=== PATIENT | female | born 1970 | race Caucasian/White ===

== ENCOUNTER → 2019-08-24 13:21 | Outpatient (BNVA) | payer MEDICAID, SELFPAY | PROVIDERS: PCP Family Medicine; Visit Provider Family Medicine | DX: I12.9 Hypertensive chronic kidney disease with stage 1 through stage 4 chronic kidney disease, or unspecified chronic kidney disease (principal); E11.22 Type 2 diabetes mellitus with diabetic chronic kidney disease; N18.4 Chronic kidney disease, stage 4 (severe); Z79.4 Long term (current) use of insulin; G47.00 Insomnia, unspecified; M54.5 Low back pain | CPT/HCPCS: 36415; 80061; 80069; 82306; 82728; 83036; 83540; 83550; 85025 ==

== ENCOUNTER → 2019-09-24 10:42 | Outpatient (BNVA) | payer MEDICAID, SELFPAY | PROVIDERS: PCP Family Medicine; Visit Provider Family Medicine | DX: E11.22 Type 2 diabetes mellitus with diabetic chronic kidney disease (principal); N18.4 Chronic kidney disease, stage 4 (severe); I10 Essential (primary) hypertension; F41.1 Generalized anxiety disorder; G47.00 Insomnia, unspecified; E55.9 Vitamin D deficiency, unspecified; M54.5 Low back pain; M54.6 Pain in thoracic spine; M47.897 Other spondylosis, lumbosacral region; M16.0 Bilateral primary osteoarthritis of hip; Z79.4 Long term (current) use of insulin | CPT/HCPCS: 72072; 72100; 73523 ==

== ENCOUNTER 2019-11-18 09:58 | Outpatient (CLI) | payer MEDICAID, SELFPAY ==
--- NOTE | 2019-11-18 10:11 | MR_ITS ---
WS: [id number] MRI LUMBAR SPINE NONCONTRAST TECHNIQUE: Sagittal T1, T2 and STIR imaging. Axial T1 and T2 imaging. CLINICAL INFORMATION: Chronic pain, xray showed degeneration, surg referral pend. COMPARISON: None. FINDINGS: Mild lumbar curve. No acute compression. Mild disc bulging L5-S1 with disc desiccation. L1-L2: Normal. L2-L3: No significant disc bulging. Mild facet arthropathy. Spinal canal and foramen are patent. L3-L4: No significant disc bulging. Mild facet arthropathy. Spinal canal and foramen are patent. L4-L5: Tiny central disc protrusion with slight effacement of ventral thecal sac. Slight narrowing of subarticular recess bilaterally. Mild to moderate facet arthropathy. Mild left and no significant ri ght foraminal narrowing. L5-S1: Mild disc bulging with osteophytic ridging. Slight effacement of ventral thecal sac. Moderate right and mild left foraminal narrowing. Tiny shallow central protrusion. Mild to moderate facet arth ropathy. Visualized pelvic bony structures: Normal. Paravertebral soft tissues: Normal. MR/MR lumbar spine wo con* [id number] IMPRESSION: 1. Mild lumbar curve. No acute compression. Disc desiccation worse L5-S1. 2. Shallow central protrusion L4-5 with slight effacement of the ventral theca l sac. Mild left foraminal narrowing at this level. 3. Right eccentric disc osteophyte complex L5-S1 with moderate right foraminal narrowing and contact of the exiting right L5 nerve root. 4. Tiny shallow central protrusion L5-S1 with slight contact of the traversing S1 nerve roots without significant impingement.
== END 2019-11-18 09:59 | disposition home or self-care (01) ==
LOC: RADWPI 10:02
PROVIDERS: PCP Family Medicine; Visit Provider Family Medicine
DX: M51.26 Other intervertebral disc displacement, lumbar region (principal); M25.78 Osteophyte, vertebrae; M51.27 Other intervertebral disc displacement, lumbosacral region
CPT/HCPCS: 72148

== ENCOUNTER → 2020-01-17 12:01 | Outpatient (BNVA) | payer MEDICAID, SELFPAY | PROVIDERS: PCP Family Medicine; Visit Provider Nurse Practitioner Family | DX: R39.9 Unspecified symptoms and signs involving the genitourinary system (principal); N30.00 Acute cystitis without hematuria | CPT/HCPCS: 80053; 81000; 87077; 87086; 87186 ==

== ENCOUNTER → 2020-01-26 11:13 | Outpatient (BNVA) | payer MEDICAID, SELFPAY | PROVIDERS: PCP Family Medicine; Visit Provider Family Medicine | DX: M54.5 Low back pain (principal); M62.830 Muscle spasm of back; F41.1 Generalized anxiety disorder; M51.16 Intervertebral disc disorders with radiculopathy, lumbar region; G47.00 Insomnia, unspecified; E78.5 Hyperlipidemia, unspecified; F32.9 Major depressive disorder, single episode, unspecified; M79.89 Other specified soft tissue disorders; E11.22 Type 2 diabetes mellitus with diabetic chronic kidney disease; Z79.4 Long term (current) use of insulin; I12.9 Hypertensive chronic kidney disease with stage 1 through stage 4 chronic kidney disease, or unspecified chronic kidney disease; N18.4 Chronic kidney disease, stage 4 (severe); N28.9 Disorder of kidney and ureter, unspecified | CPT/HCPCS: 80048; 83036 ==

== ENCOUNTER → 2020-02-15 15:20 | Outpatient (BNVA) | payer MEDICAID, SELFPAY | PROVIDERS: PCP Family Medicine; Referring Provider Family Medicine; Visit Provider Family Medicine | DX: N28.9 Disorder of kidney and ureter, unspecified (principal); E11.22 Type 2 diabetes mellitus with diabetic chronic kidney disease; N18.4 Chronic kidney disease, stage 4 (severe); Z79.4 Long term (current) use of insulin | CPT/HCPCS: 80048 ==

== ENCOUNTER 2020-02-29 20:00 | Outpatient (CLI) | payer MEDICAID, SELFPAY | END 2020-02-29 20:01 | disposition home or self-care (01) | LOC: SLEEP 03-01 09:14 | PROVIDERS: PCP Family Medicine; Visit Provider Family Medicine | DX: G47.33 Obstructive sleep apnea (adult) (pediatric) (principal) | CPT/HCPCS: 95810 ==

== ENCOUNTER → 2020-04-26 10:56 | Outpatient (BNVA) | payer MEDICAID, SELFPAY | PROVIDERS: PCP Family Medicine; Visit Provider Family Medicine | DX: E11.22 Type 2 diabetes mellitus with diabetic chronic kidney disease; N18.4 Chronic kidney disease, stage 4 (severe); D63.1 Anemia in chronic kidney disease; I12.9 Hypertensive chronic kidney disease with stage 1 through stage 4 chronic kidney disease, or unspecified chronic kidney disease; Z79.4 Long term (current) use of insulin | CPT/HCPCS: 80053; 80069; 82310; 82728; 83036; 83550; 83970; 85025 ==

== ENCOUNTER 2020-06-14 20:00 | Outpatient (CLI) | payer MEDICAID, SELFPAY | END 2020-06-14 20:01 | disposition home or self-care (01) | LOC: SLEEP 06-15 10:12 | PROVIDERS: PCP Family Medicine; Visit Provider Family Medicine | DX: G47.33 Obstructive sleep apnea (adult) (pediatric) (principal) | CPT/HCPCS: 95811 ==

== ENCOUNTER → 2020-08-30 10:33 | Outpatient (BNVA) | payer MEDICAID, SELFPAY | PROVIDERS: PCP Family Medicine; Visit Provider Family Medicine | DX: G47.00 Insomnia, unspecified (principal); I10 Essential (primary) hypertension; E11.9 Type 2 diabetes mellitus without complications; E11.22 Type 2 diabetes mellitus with diabetic chronic kidney disease; N18.4 Chronic kidney disease, stage 4 (severe); Z79.4 Long term (current) use of insulin; M54.5 Low back pain; M48.062 Spinal stenosis, lumbar region with neurogenic claudication; M51.16 Intervertebral disc disorders with radiculopathy, lumbar region; F32.9 Major depressive disorder, single episode, unspecified; F41.1 Generalized anxiety disorder; M79.89 Other specified soft tissue disorders; E78.5 Hyperlipidemia, unspecified; F51.04 Psychophysiologic insomnia; N28.9 Disorder of kidney and ureter, unspecified | CPT/HCPCS: 80048; 83036 ==

== ENCOUNTER → 2021-01-02 08:59 | Outpatient (BNVA) | payer MEDICAID, SELFPAY | PROVIDERS: PCP Family Medicine; Visit Provider Family Medicine | DX: G47.00 Insomnia, unspecified (principal); E78.5 Hyperlipidemia, unspecified; M79.89 Other specified soft tissue disorders; F32.9 Major depressive disorder, single episode, unspecified; F41.1 Generalized anxiety disorder; J45.909 Unspecified asthma, uncomplicated; E11.22 Type 2 diabetes mellitus with diabetic chronic kidney disease; E11.9 Type 2 diabetes mellitus without complications; N18.4 Chronic kidney disease, stage 4 (severe); E78.2 Mixed hyperlipidemia; I10 Essential (primary) hypertension; N28.9 Disorder of kidney and ureter, unspecified; M48.062 Spinal stenosis, lumbar region with neurogenic claudication; M51.16 Intervertebral disc disorders with radiculopathy, lumbar region; M54.5 Low back pain; F51.04 Psychophysiologic insomnia | CPT/HCPCS: 80053; 80061; 83036; 85025 ==

== ENCOUNTER → 2021-01-03 13:44 | Outpatient (BNVA) | payer MEDICAID, SELFPAY | PROVIDERS: PCP Family Medicine; Visit Provider Family Medicine | DX: E78.5 Hyperlipidemia, unspecified (principal); G47.00 Insomnia, unspecified; M79.89 Other specified soft tissue disorders; F32.9 Major depressive disorder, single episode, unspecified; F41.1 Generalized anxiety disorder; J45.909 Unspecified asthma, uncomplicated; E11.22 Type 2 diabetes mellitus with diabetic chronic kidney disease; N18.4 Chronic kidney disease, stage 4 (severe); E78.2 Mixed hyperlipidemia; I10 Essential (primary) hypertension; N28.9 Disorder of kidney and ureter, unspecified; M48.062 Spinal stenosis, lumbar region with neurogenic claudication; M51.16 Intervertebral disc disorders with radiculopathy, lumbar region; Z79.4 Long term (current) use of insulin | CPT/HCPCS: 82728; 83550 ==

== ENCOUNTER → 2021-02-26 12:38 | Outpatient (BNVA) | payer MEDICAID, SELFPAY | PROVIDERS: PCP Family Medicine; Visit Provider Nurse Practitioner | DX: Z20.822 Contact with and (suspected) exposure to COVID-19 (principal) | CPT/HCPCS: 87635 ==

== ENCOUNTER → 2021-04-04 11:13 | Outpatient (BNVA) | payer MEDICAID, SELFPAY | PROVIDERS: PCP Family Medicine; Visit Provider Family Medicine | DX: G47.00 Insomnia, unspecified (principal); F41.1 Generalized anxiety disorder; F32.9 Major depressive disorder, single episode, unspecified; M79.89 Other specified soft tissue disorders; E78.5 Hyperlipidemia, unspecified; M48.062 Spinal stenosis, lumbar region with neurogenic claudication; M51.16 Intervertebral disc disorders with radiculopathy, lumbar region; E11.22 Type 2 diabetes mellitus with diabetic chronic kidney disease; N18.4 Chronic kidney disease, stage 4 (severe); Z79.4 Long term (current) use of insulin; N28.9 Disorder of kidney and ureter, unspecified; F51.04 Psychophysiologic insomnia; E11.42 Type 2 diabetes mellitus with diabetic polyneuropathy; F43.21 Adjustment disorder with depressed mood; I12.9 Hypertensive chronic kidney disease with stage 1 through stage 4 chronic kidney disease, or unspecified chronic kidney disease | CPT/HCPCS: 80048; 83036 ==

== ENCOUNTER 2021-08-29 06:00 | Outpatient (RCR) | payer MEDICAID, SELFPAY | END 2021-09-18 23:59 | disposition home or self-care (01) | LOC: MPT 06:00 | PROVIDERS: PCP Family Medicine; Referring Provider Family Medicine; Visit Provider Family Medicine | DX: M54.9 Dorsalgia, unspecified (principal); G89.29 Other chronic pain | CPT/HCPCS: 97110; 97162; 97530; G0283 ==

== ENCOUNTER 2021-09-19 06:00 | Outpatient (RCR) | payer MEDICAID, SELFPAY | END 2021-10-16 23:59 | disposition home or self-care (01) | LOC: MPT 06:00 | PROVIDERS: PCP Family Medicine; Referring Provider Family Medicine; Visit Provider Family Medicine | DX: M54.9 Dorsalgia, unspecified (principal); G89.29 Other chronic pain | CPT/HCPCS: 97110; 97530; G0283 ==

== ENCOUNTER → 2021-10-04 08:34 | Outpatient (BNVA) | payer MEDICAID, SELFPAY | PROVIDERS: PCP Family Medicine; Visit Provider Family Medicine | DX: M54.9 Dorsalgia, unspecified (principal) | CPT/HCPCS: 72072 ==

== ENCOUNTER 2021-10-17 06:00 | Outpatient (RCR) | payer MEDICAID, SELFPAY | END 2021-11-16 23:59 | disposition home or self-care (01) | LOC: MPT 06:00 | PROVIDERS: PCP Family Medicine; Referring Provider Family Medicine; Visit Provider Family Medicine | DX: M54.9 Dorsalgia, unspecified (principal); G89.29 Other chronic pain | CPT/HCPCS: 97110; 97530; G0283 ==

== ENCOUNTER 2021-11-17 06:00 | Outpatient (RCR) | payer MEDICAID, SELFPAY | END 2021-12-16 23:59 | disposition home or self-care (01) | LOC: MPT 06:00 | PROVIDERS: PCP Family Medicine; Referring Provider Family Medicine; Visit Provider Family Medicine | DX: G89.29 Other chronic pain (principal); M54.9 Dorsalgia, unspecified | CPT/HCPCS: 97110; 97530; G0283 ==

== ENCOUNTER → 2022-04-30 09:51 | Outpatient (BNVA) | payer MEDICAID, SELFPAY | PROVIDERS: PCP Family Medicine; Visit Provider Anesthesiology Pain Medicine | DX: G89.29 Other chronic pain (principal); M51.16 Intervertebral disc disorders with radiculopathy, lumbar region; M47.816 Spondylosis without myelopathy or radiculopathy, lumbar region; E11.42 Type 2 diabetes mellitus with diabetic polyneuropathy; M79.604 Pain in right leg; M79.605 Pain in left leg; Z79.4 Long term (current) use of insulin | CPT/HCPCS: 99204 ==

== ENCOUNTER → 2022-05-15 14:15 | Outpatient (BNVA) | payer MEDICAID, SELFPAY | PROVIDERS: PCP Family Medicine; Visit Provider Anesthesiology Pain Medicine | DX: G89.29 Other chronic pain (principal); M47.816 Spondylosis without myelopathy or radiculopathy, lumbar region | CPT/HCPCS: 64493; 64494; 64495 ==

== ENCOUNTER → 2022-05-29 13:16 | Outpatient (BNVA) | payer MEDICAID, SELFPAY | PROVIDERS: PCP Family Medicine; Visit Provider Anesthesiology Pain Medicine | DX: G89.29 Other chronic pain (principal); M47.816 Spondylosis without myelopathy or radiculopathy, lumbar region | CPT/HCPCS: 64493; 64494; 64495 ==

== ENCOUNTER 2022-06-06 06:44 | Outpatient (CLI) | payer MEDICAID, SELFPAY ==
--- NOTE | 2022-06-06 07:15 | MR_ITS ---
WS: [id number] MRI THORACIC SPINE noncontrast HISTORY: M54.9 - Dorsalgia, unspecified COMPARISON: None available. TECHNIQUE: Multiplanar sequences are performed in sagittal and axial planes. Very mild increase in thoracic kyphosis centered in the mid spine. Hyperintense area in the superior endplate of T11 is probably a vertebral hemangioma. Area is hyperintense on the T1 and T2 sequences. There is only very minimal disc space narrowing and desiccation throughout the lumbar spine. No acute fractures. T1-2: Normal. T2-3: Normal. T3-4: Normal. T4-5: Normal. T5-6: Normal. T6-7: Normal. T7-8: Normal. T8-9: Normal. T9-10: Very mild facet arthritis. T10-11: Mild facet arthritis. T11-12: Mild facet arthritis. Paravertebral soft tissues are negative. MR/MR thoracic spin wo con* [id number] IMPRESSION: 1. Mild increase in thoracic kyphosis. 2. No focal disc protrusions or significant central or foraminal stenosis. 3. Mild facet arthritis from T9 to T12.
== END 2022-06-06 06:45 | disposition home or self-care (01) ==
LOC: RAD 06:45
PROVIDERS: PCP Family Medicine; Visit Provider Family Medicine
DX: G89.29 Other chronic pain; M54.6 Pain in thoracic spine; M40.294 Other kyphosis, thoracic region; M47.894 Other spondylosis, thoracic region
CPT/HCPCS: 72146

== ENCOUNTER → 2022-06-14 09:39 | Outpatient (BNVA) | payer MEDICAID, SELFPAY | PROVIDERS: PCP Family Medicine; Visit Provider Anesthesiology Pain Medicine | DX: G89.29 Other chronic pain (principal); M51.16 Intervertebral disc disorders with radiculopathy, lumbar region; M47.816 Spondylosis without myelopathy or radiculopathy, lumbar region; E11.42 Type 2 diabetes mellitus with diabetic polyneuropathy; Z79.4 Long term (current) use of insulin; M79.604 Pain in right leg; M79.605 Pain in left leg | CPT/HCPCS: 99214 ==

== ENCOUNTER → 2022-06-21 13:17 | Outpatient (BNVA) | payer MEDICAID, SELFPAY | PROVIDERS: PCP Family Medicine; Visit Provider Anesthesiology Pain Medicine | DX: G89.29 Other chronic pain (principal); M47.816 Spondylosis without myelopathy or radiculopathy, lumbar region; E11.9 Type 2 diabetes mellitus without complications; Z79.4 Long term (current) use of insulin | CPT/HCPCS: 36416; 64635; 64636; 82962; J1030 ==

== ENCOUNTER → 2022-07-05 09:43 | Outpatient (BNVA) | payer MEDICAID, SELFPAY | PROVIDERS: PCP Family Medicine; Visit Provider Anesthesiology Pain Medicine | DX: G89.29 Other chronic pain (principal); M51.16 Intervertebral disc disorders with radiculopathy, lumbar region; M47.816 Spondylosis without myelopathy or radiculopathy, lumbar region; E11.42 Type 2 diabetes mellitus with diabetic polyneuropathy; M79.604 Pain in right leg; M79.605 Pain in left leg; Z79.4 Long term (current) use of insulin | CPT/HCPCS: 99213 ==

== ENCOUNTER → 2023-07-04 10:30 | Outpatient (BNVA) | payer MEDICAID, SELFPAY | PROVIDERS: PCP Family Medicine; Visit Provider Orthopaedic Surgery | DX: M48.062 Spinal stenosis, lumbar region with neurogenic claudication (principal); G89.29 Other chronic pain; M51.36 Other intervertebral disc degeneration, lumbar region | CPT/HCPCS: 72110; 99204 ==

== ENCOUNTER 2023-08-21 10:53 | Outpatient (CLI) | payer MEDICAID, SELFPAY ==
--- NOTE | 2023-08-21 11:01 | MR_ITS ---
WS: [id number] MRI LUMBAR SPINE NONCONTRAST TECHNIQUE: Sagittal T1, T2 and STIR imaging. Axial T1 and T2 imaging. CLINICAL INFORMATION: lumbar pain COMPARISON: 2019 FINDINGS: Tiny central protrusion cervical spine on noxious weeds and pest inspector imaging with slight contact of the cervical cord at C3-4. This appears slightly progressed compared to 2020. Mild lumbar curve. No acute compression. Disc desiccation worse at L5-S1. Disc bulging worse at L4-L5 and L5-S1. L1-L2: Mild facet arthropathy. Spinal canal and foramen are patent. L2-L3: Mild facet arthropathy. Small canal and foramen are patent. L3-L4: Minimal annular bulging. Small LEFT foraminal protrusion with mild LEFT foraminal narrowing. T his is new compared to previous. RIGHT foramen is patent. Moderate facet arthropathy. L4-L5: Shallow central protrusion with slight impingement subarticular recess bilaterally. Mild LEFT foraminal narrowing. Moderate facet arthropathy. L5-S1: Disc desiccation with a small central protrusion. Slight encroachment of traversing S1 nerve r oots. Moderate RIGHT and mild LEFT foraminal narrowing. Visualized pelvic bony structures: Normal. Paravertebral soft tissues: Normal. IMPRESSION: 1. Mild lumbar curve. No acute compression. Disc desiccation worse at L5-S1. 2. Mild annular bulging L4-5 with a shallow central protrusion. Slight impingement subarticular rece ss and traversing L5 nerve roots bilaterally. This is slightly progressed compared to previous. 3. Mild LEFT proximal L4-5 foraminal narrowing. 4. Shallow central protrusion L5-S1 with slight encroachment traversing S1 nerve roots bilaterally. This appears slightly progressed compared to previous. Moderate RIGHT foraminal narrowing. 5. Small LEFT foraminal protrusion at L3-4 with mild LEFT foraminal narrowing appears new compared t o previous 6. Moderate facet arthropathy L3-L4 L4-L5 and L5-S1. 7. Tiny central protrusion cervical spine on noxious weeds and pest inspector imaging with slight contact of the cervical cord at C3-4. This appears slightly progressed compared to 2020.
== END 2023-08-21 10:54 | disposition home or self-care (01) ==
LOC: RAD 10:54
PROVIDERS: PCP Family Medicine; Visit Provider Orthopaedic Surgery
DX: M51.36 Other intervertebral disc degeneration, lumbar region (principal); M51.27 Other intervertebral disc displacement, lumbosacral region; M48.07 Spinal stenosis, lumbosacral region; M47.817 Spondylosis without myelopathy or radiculopathy, lumbosacral region; G89.29 Other chronic pain
CPT/HCPCS: 72148

== ENCOUNTER → 2023-08-27 10:48 | Outpatient (BNVA) | payer MEDICAID, SELFPAY | PROVIDERS: PCP Family Medicine; Visit Provider Orthopaedic Surgery | DX: M48.062 Spinal stenosis, lumbar region with neurogenic claudication (principal) | CPT/HCPCS: 99213 ==

== ENCOUNTER → 2023-11-14 14:43 | Outpatient (BNVA) | payer MEDICAID, SELFPAY | PROVIDERS: PCP Family Medicine; Visit Provider Orthopaedic Surgery | DX: M48.062 Spinal stenosis, lumbar region with neurogenic claudication (principal) | CPT/HCPCS: 36415; 72110; 80053; 85025; 99214 ==

== ENCOUNTER → 2023-12-06 09:16 | Outpatient (BNVA) | payer MEDICAID, SELFPAY | PROVIDERS: PCP Family Medicine; Visit Provider Family Medicine | DX: Z01.818 Encounter for other preprocedural examination (principal); E11.22 Type 2 diabetes mellitus with diabetic chronic kidney disease; N18.4 Chronic kidney disease, stage 4 (severe); Z79.4 Long term (current) use of insulin | CPT/HCPCS: 93005 ==

== ENCOUNTER → 2023-12-10 09:16 | Outpatient (BNVA) | payer MEDICAID, SELFPAY | PROVIDERS: PCP Family Medicine; Referring Provider Family Medicine; Visit Provider Family Medicine | DX: Z01.818 Encounter for other preprocedural examination (principal); E11.22 Type 2 diabetes mellitus with diabetic chronic kidney disease; N18.4 Chronic kidney disease, stage 4 (severe); Z79.4 Long term (current) use of insulin | CPT/HCPCS: 81003; 83036; 87077; 87086; 87184 ==

== ENCOUNTER → 2023-12-25 15:10 | Outpatient (BNVA) | payer MEDICAID, SELFPAY | PROVIDERS: Referring Provider Family Medicine; Visit Provider Family Medicine | DX: Z01.818 Encounter for other preprocedural examination (principal) | CPT/HCPCS: 81000 ==

== ENCOUNTER 2023-12-30 10:51 | Outpatient (CLI) | payer MEDICAID, SELFPAY ==
[2023-12-30 11:44] LABS: Estmated Average Glucose 197; Hemoglobin A1C 8.5 % (4.0-6.0)
== END 2023-12-30 10:52 | disposition home or self-care (01) ==
LOC: LAB 10:53
PROVIDERS: PCP Family Medicine; Visit Provider Orthopaedic Surgery
DX: M51.16 Intervertebral disc disorders with radiculopathy, lumbar region (principal)
CPT/HCPCS: 36415; 83036

== ENCOUNTER → 2024-01-14 10:16 | Outpatient (BNVA) | payer MEDICAID, SELFPAY | PROVIDERS: PCP Family Medicine; Referring Provider Orthopaedic Surgery; Visit Provider Orthopaedic Surgery | DX: E11.22 Type 2 diabetes mellitus with diabetic chronic kidney disease (principal); N18.4 Chronic kidney disease, stage 4 (severe); Z79.4 Long term (current) use of insulin | CPT/HCPCS: 83036 ==

== ENCOUNTER → 2024-02-03 12:01 | Outpatient (BNVA) | payer MEDICAID, SELFPAY | PROVIDERS: PCP Family Medicine; Visit Provider Family Medicine | DX: Z01.818 Encounter for other preprocedural examination (principal) | CPT/HCPCS: 80053; 81003; 85025 ==

== ENCOUNTER 2024-02-24 12:30 | Inpatient (IN) | payer MEDICAID, SELFPAY ==
[2024-02-24] VITALS (30 sets, daily range): BP systolic 129–172; BP diastolic 61–90; PULSE 78–113; RESP 14–20; TEMP 36.4–37.3; O2SAT 90–97; BMI 35.9
[2024-02-24 08:43] LABS: Glucose Point of Care 127 mg/dL (70-110)
--- NOTE | 2024-02-24 08:51 | W.PM.OPSUD ---
Surgery/Procedure H&P Update DATE OF PROCEDURE: February 24, 2024 DATE H&P PERFORMED: 02/03/24 H&P UPDATE INFORMATION: I have reviewed H&P completed within last 30 days, I have examined patient prior to procedure and No changes to prior documentation PREOP DIAGNOSIS: Lumbar stenosis with neurogenic claudication PLANNED PROCEDURE: Operation Date: 02/24/24 09:45 Proposed Procedures p Spinal Fusion PSF(Not Applicable) - Romero Chan DO s Posterior Lumbar Interbody Fusion PLIF(Not Applicable) - DO kya Ivy Lumbar Spine Decompression Lumbar Decompression(Not Applicable) - Romero Chan DO
--- NOTE | 2024-02-24 08:59 | P.ANESASSM_ITS ---
Pre-Anesthetic Assessment Height/Weight: Height 1.55 m Preop Diagnosis: Lumbar stenosis with neurogenic claudication Operation Date: 02/24/24 09:45 Proposed Procedures p Spinal Fusion PSF(Not Applicable) - Romero Chan DO s Posterior Lumbar Interbody Fusion PLIF(Not Applicable) - DO kya Ivy Lumbar Spine Decompression Lumbar Decompression(Not Applicable) - Romero Chan DO Familial anesthetic complications: None Was Beta Avel taken within 24 hours: N/A Was Clonidine taken within 24 hours: N/A Last intake: > 8 hrs Social No alcohol and No tobacco Exam alert, oriented x 3, clear to auscultation bilaterally and regular rate & rhythm Airway Mallampati: Class IV Dentition: false Pulmonary Asthma CV/HEM Hypertension Chronic Renal Insufficiency Metabolic Diabetes Mellitus and Morbid Obesity Anesthetic Plan ASA status: 3 Anesthesia: General Risk of > 500 ml blood loss (7ml/kg in children): No Medications/Allergies Home Medications Medication Instructions Recorded Confirmed Last Taken Type miscellaneous medical supply 1 ea miscellaneous .nightly #1 ea 06/30/20 02/19/24 Unknown Rx insulin glargine 100 unit/mL (3 50 unit SUBCUT BID 01/02/21 02/19/24 02/23/24 History mL) subcutaneous pen (Lantus Solostar U-100 Insulin) insulin lispro 100 unit/mL 24 unit SUBCUT TID 01/02/21 02/19/24 02/23/24 History subcutaneous pen duloxetine 30 mg capsule,delayed 30 mg PO BID 10/08/22 02/19/24 02/23/24 History release oxycodone 5 mg tablet 5 mg PO Q6H PRN Pain, Moderate 11/12/22 02/19/24 02/23/24 History loratadine 10 mg tablet 10 mg PO DAILY PRN allergy 12/31/22 02/24/24 2 Weeks Ago Rx symptoms 30 days #30 tabs ~02/10/24 insulin syringe-needle U-100 1/2 #100 ea 03/18/23 12/17/23 Unknown Rx mL 31 gauge x 15/64 (BD Veo Insulin Syringe Ultra-Fine) aspirin 81 mg tablet,delayed 81 mg PO DAILY 06/18/23 02/24/24 02/22/24 17:30 History release (Adult Aspirin Regimen) metoprolol succinate 25 mg 25 mg PO BID 06/18/23 02/19/24 02/24/24 06:00 History tablet,extended release 24 hr rosuvastatin 10 mg tablet 10 mg PO BEDTIME 12/06/23 02/19/24 02/23/24 History dulaglutide 0.75 mg/0.5 mL mg SUBCUT 12/17/23 02/03/24 02/09/24 History subcutaneous pen injector (Trulicity) furosemide 40 mg tablet 40 mg PO BID PRN edema 90 days 12/17/23 02/19/24 02/23/24 Rx #180 tabs hydroxyzine HCl 25 mg tablet 25 mg PO BID PRN anxiety 30 days 12/17/23 02/19/24 02/23/24 Rx #30 tabs linaclotide 72 mcg capsule 72 mcg PO QAM 30 days #30 caps 12/17/23 02/19/24 0703/11 Rx (Linzess) tizanidine 4 mg tablet 8 mg (2 x 4 mg) PO TID PRN muscle 12/17/23 02/19/24 02/23/24 Rx spasticity 90 days #540 tabs ergocalciferol (vitamin D2) 1,250 1,250 mcg PO Q30D 02/03/24 02/19/24 02/09/24 History mcg (50,000 unit) capsule Bone growth stimulator #1 ea 02/17/24 Unknown Rx albuterol sulfate 90 mcg/actuation 1 puff inhalation DIRECTED PRN 02/19/24 02/24/24 1 Week Ago History aerosol inhaler (ProAir HFA) Shortness Of Breath ~02/17/24 amitriptyline 50 mg tablet 50 mg PO BEDTIME 02/19/24 02/19/24 02/23/24 History aripiprazole 5 mg tablet 5 mg PO BEDTIME 02/19/24 02/19/24 02/23/24 History fluticasone propionate 50 1 spray intranasal Q12H PRN 02/19/24 02/24/24 1 Month Ago History mcg/actuation nasal allergies ~01/25/24 spray,suspension zolpidem 10 mg tablet 10 mg PO .at bedtime 02/19/24 02/19/24 02/23/24 History Allergies Allergy/AdvReac Type Severity Reaction Status Date / Time cephalexin AdvReac itch Verified 02/03/24 11:47 erythromycin base AdvReac nausea and Verified 02/03/24 11:47 cramps Sulfa (Sulfonamide AdvReac rash Verified 02/03/24 11:47 Antibiotics) [facility] Anesthesia Medical History Hypertension Lumbar stenosis with neurogenic claudication Intervertebral disc disorder with radiculopathy of lumbosacral region Lumbar disc disease with radiculopathy Low serum vitamin D Iron deficiency anemia Leg swelling Contact dermatitis Insomnia Sleep study pending due to COVID slowing down testing. Major depression, chronic CHRISTEN (generalized anxiety disorder) Lumbar back pain Diabetes Kidney disease Hyperlipidemia Asthma Surgical History H/O: hysterectomy H/O section History of biopsy of temporal artery Family History Mother Hypertension Stroke Cancer Sister Hypertension Diabetes Denies family history of Clotting disorder Social History Smoking and tobacco/nicotine status: never used tobacco/nicotine Second hand smoke exposure: No Alcohol intake: never Substance/Drug Use: never Female Reproductive History Spontaneous abortions: No Data Anesthesia Cardiac Studies: No Data to Display
[2024-02-24] MEDS: sodium chloride 0.9% 1,000 ML 30 ML IV (09:15)
[2024-02-24] MEDS: clindamycin 600 MG/50 ML PREMIX 100 MG IV (09:36)
[2024-02-24] MEDS: vancomycin 1,000 MG SDV 1000 MG XX (10:20)
[2024-02-24] MEDS: lidocaine-epi 1% 20 mL INJ 10 ML INJECTION (10:21)
[2024-02-24] MEDS: heparin, porcine 1,000 unit/mL INJ 10 mL 10000 UNIT IRRIGATION (10:21)
[2024-02-24] MEDS: fentaNYL 50 mcg/mL INJ 2mL IVP (12:55)
--- NOTE | 2024-02-24 12:57 | P.OP_ITS ---
Operative Report Date of procedure: February 24, 2024 Pre-op diagnosis: Lumbar stenosis with neurogenic claudication Post-op diagnosis: same Procedure done: 1. L5/S1 Interbody fusion with posterolateral fusion 2. Instrumentation L5/S1 3. Cage at L5/S1 4. L5-S1 laminectomy with partial facetectomies 5. use of autograft from same incision 6. allograft 7. Bone marrow aspirate from right iliac crest 8. Use of computer navigation/stereotactic for spine. Surgeon: Romero Chan, Procedure: 1. L5/S1 Interbody fusion with posterolateral fusion 2. Instrumentation L5/S1 3. Cage at L5/S1 4. L5-S1 laminectomy with partial facetectomies 5. use of autograft from same incision 6. allograft 7. Bone marrow aspirate from right iliac crest 8. Use of computer navigation/stereotactic for spine. Patient is brought to the operative suite. After undergoing anesthesia, the patient had neuro monitoring attached. Patient was then placed in the prone position on the Moshe table. All areas of impingement were well-padded. Patient was then prepped and draped in the normal sterile fashion. Skin incision was then made over the L5/S1 space. Subperiosteal dissection was made out to the transverse processes of L5 and S1. The [employer] bone marrow aspirate kit was used to aspirate bone marrow aspirate. This was done by using the sharp probe to open up the bone. Aspiration was performed and then the blunt probe was then used to dissect down to through the bone tunnel. An aspirating well drawn back a millimeter approximately 20 cc of bone marrow aspirate was used. Admixed with the allograft and autograft bone that will be used. The 2 pins were placed in the right iliac crest were removed in the case. The fiducial was attached. the C-arm was loaded the computer for later used with computer navigation. The technique for placing the pedicle screws was to use a drill followed by the gearshift probe linked to computer navigation. Followed by the ball probe to feel the superior inferior medial lateral slade of the pedicles linked to computer navigation. Then placement of the screws. Was done at each pedicle. Screws were placed at L5 bilaterally and S1. Next attention was brought to performing the laminectomy ofL5. This was done using the high-speed bur Kerrisons and curettes. Once the lamina was removed and then attention was brought to performing a partial facetectomy on the contralateral side. This was done again using the high-speed bur curettes and Kerrisons. The ligamentum flavum was taken down bilaterally from L5 to S1. Attention was then brought to the facet on the ipsilateral side. The facet was taken down. The S1 nerve was decompressed as it passed around the S1 pedicle. The laminectomy was done for purposes of decompressing the nerve as well as placement of the cage. The L5 nerve was identified as it traversed through the L5/S1 foramen. The thecal sac was identified and retracted. The L5/S1 disc base was identified. Using a knife the disc base was opened. And then sequential evens were placed. The first shaver was a 6 and the last shaver was a 7. Using a pituitary and down going curette the endplates were scraped and disc material was removed from the space. Once adequate decompression of the disc base was felt to be had. Osteoamp sponge was packed into the anterior aspect of the disc base. Then a size 8 cage from [employer] was placed after packing osteoamp into the cage. While placing the cage the thecal sac and S1 nerve was protected. C arm was used to ensure that the cages placed in the appropriate position. Attention was then brought to attaching the rods to the screws placed in theL5 and S1 bilaterally. Caps were torqued into position. Locking the construct in place. Wound was copiously irrigated and then attention was brought to decorticating the facets and transverse processes laterally. Bone that was taken down from the lamina was used along with osteoamp fibers and sponges were packed into the lateral gutters along the facet joints. This was done bilaterally. Wound was then closed in a layered fashion starting with the thoracolumbar fascia. 0-vicryl was used the sub cutaneous tissue was closed with 2-0 vicryl and skin with 4-0 monocryl. Glue was then used to seal the skin and a steril dressing was applied. Patient was then placed in the supine position. The endotracheal tube was removed and patient was transferred to the PACU in stable condition.
[2024-02-24] MEDS: HYDROmorphone 1 mg/mL INJ 1 mL 0.5 MG IVP ×2 (13:05→13:25)
--- NOTE | 2024-02-24 13:18 | XR_ITS ---
WS: [id number] Lumbar spine, C arm fluoroscopy views, 02/24/2024 Clinical Data: psf, or pic Comparison: Lumbar spine, 07/04/2023 Findings: Dr. Chan performed a posterior lumbosacral fusion at L5-S1. XR/XR lumbar spine 2-3V* [id number] Impression: Posterior lumbosacral fusion.
--- NOTE | 2024-02-24 13:50 | ANE.PACU2 ---
Inpatient post-anesthesia follow up: Airway intact: Yes Vital signs: Temperature 99.1 F Pulse Rate 108 Respiratory Rate 16 Blood Pressure 135/65 Pulse Oximetry 95 Oxygen Delivery Me thod Nasal Cannula Oxygen Flow Rate 2 Fraction of Inspir ed Oxygen Hydration adequate: Yes Nausea and vomiting: No Pain level: 1 Mental status: Baseline
[2024-02-24] MEDS: ketorolac 30 mg/mL INJ IVP (15:47)
[2024-02-24] MEDS: lactated ringers 1,000 ML 90 ML IV (15:57)
[2024-02-24] MEDS: duloxetine 30 mg Capsule PO (17:45)
[2024-02-24] MEDS: metoprolol succinate ER (24 HR) 25 mg Tablet PO (17:45)
[2024-02-24] MEDS: docusate sodium 100 mg Capsule PO (17:45)
[2024-02-24] MEDS: oxyCODONE-APAP 10-325 mg Tablet PO ×2 (17:49→21:45)
[2024-02-24 20:14] LABS: Glucose Point of Care 323 mg/dL (70-110)
[2024-02-24] MEDS: ARIPiprazole 10 mg Tablet 5 MG PO (21:46)
[2024-02-24] MEDS: amitriptyline 25 mg Tablet 50 MG PO (21:46)
[2024-02-24] MEDS: zolpidem 5 mg Tablet 10 MG PO (21:46)
[2024-02-24] MEDS: atorvastatin 40 mg Tablet PO (21:46)
[2024-02-24 22:21] LABS: Glucose Point of Care 362 mg/dL (70-110)
[2024-02-24] MEDS: insulin glargine 100 units/1 mL 50 UNIT SUBCUT (22:21)
[2024-02-24] MEDS: tizanidine 4 mg Tablet 8 MG PO (22:24)
[2024-02-25] VITALS (7 sets, daily range): BP systolic 95–129; BP diastolic 56–69; PULSE 81–100; RESP 16–18; TEMP 36.4–36.7; O2SAT 86–96
[2024-02-25] MEDS: oxyCODONE-APAP 10-325 mg Tablet PO ×2 (01:53→06:06)
[2024-02-25] MEDS: lactated ringers 1,000 ML 90 ML IV (01:53)
[2024-02-25] MEDS: FUROsemide 40 mg Tablet PO (06:12)
--- NOTE | 2024-02-25 08:08 | P.DS_ITS ---
Discharge Providers Date of Admission: 02/24/24 12:30 Date of Discharge: February 25, 2024 Attending Provider at Admission: Romero Chan DO Attending Provider at Discharge: Romero Chan DO Primary Care Provider: Aria Shaffer MD Reason for Visit Reason for Visit: M48.062 Physical Exam Narrative: Patient sitting up in bed pain controlled eating breakfast. Urinary Catheter Management: Almanza: Cath Placed During This Visit: yes Reason for Continuing Indwelling Catheter: Perioperative Use in Selected Surgeries Urinary Catheter Date of Insertion: 02/24/24 Urinary Catheter Time of Insertion: 09:50 Discharge Data Studies Completed and Pending Completed Studies During Hospitalization Category Date Time Status XR lumbar spine 2-3V* [id number] Routine Exams 02/24/24 13:18 Completed Radiology Impressions Lumbar Spine X-Ray 02/24/24 13:18 Impression: Posterior lumbosacral fusion. Laboratory Results POC Glucose 362 mg/dL (70-110) H 02/24/24 22:14 Blood Type O Positive 02/24/24 08:35 Rho(D) Type Rh positive 02/24/24 08:35 Antibody Screen Negative 02/24/24 08:35 Vitals Last Vital Signs Temp 97.6 F 02/25/24 07:37 Pulse 95 02/25/24 07:37 Resp 18 02/25/24 07:37 BP 95/56 02/25/24 07:37 Pulse Ox 94 02/25/24 07:37 O2 Del Method Nasal Cannula 02/25/24 07:37 O2 Flow Rate 2 02/24/24 15:41 Discharge Plan Discharge Patient Disposition: Home Condition: Stable Prescriptions: Continued Lantus Solostar U-100 Insulin 100 unit/mL (3 mL) insulin pen 50 unit SUBCUT BID insulin lispro 100 unit/mL insulin pen 24 unit SUBCUT TID Rx Instructions: with s/s aspirin [Adult Aspirin Regimen] 81 mg tablet,delayed release (DR/EC) 81 mg PO DAILY metoprolol succinate 25 mg tablet extended release 24 hr 25 mg PO BID Trulicity 0.75 mg/0.5 mL pen injector SUBCUT furosemide 40 mg tablet 40 mg PO BID PRN (Reason: edema) 90 Days Qty: 180 1RF Rx Instructions: take 1 daily, make take 2nd if having swelling hydroxyzine HCl 25 mg tablet 25 mg PO BID PRN (Reason: anxiety) 30 Days Qty: 30 5RF Linzess 72 mcg capsule 72 mcg PO QAM 30 Days Qty: 30 5RF tizanidine 4 mg tablet 8 mg PO TID PRN (Reason: muscle spasticity) 90 Days Qty: 540 1RF rosuvastatin 10 mg tablet 10 mg PO BEDTIME duloxetine 30 mg capsule,delayed release(DR/EC) 30 mg PO BID oxycodone 5 mg tablet 5 mg PO Q6H PRN (Reason: Pain, Moderate) loratadine 10 mg tablet 10 mg PO DAILY PRN (Reason: allergy symptoms) 30 Days Qty: 30 2RF ergocalciferol (vitamin D2) 1,250 mcg (50,000 unit) capsule 1,250 mcg PO Q30D miscellaneous medical supply Misc 1 ea miscellaneous .nightly Qty: 1 0RF Rx Instructions: CPAP machine iwth mask, hoses, supplies, etc. miscellaneous (DME) insulin syringe-needle U-100 [BD Veo Insulin Syringe UF] 1/2 mL 31 gauge x 15/64 syringe See Rx Instructions .ROUTE .COMPLEX Qty: 100 1RF Dose Instruction: USE DIRECTED Rx Instructions: USE DIRECTED (DME) Bone growth stimulator See Rx Instructions .Route .MEDSUPPLY Qty: 1 0RF Rx Instructions: As directed fluticasone propionate 50 mcg/actuation spray,suspension 1 spray intranasal Q12H PRN (Reason: allergies) Rx Instructions: administer into each nostril amitriptyline 50 mg tablet 50 mg PO BEDTIME zolpidem 10 mg tablet 10 mg PO .at bedtime albuterol sulfate [ProAir HFA] 90 mcg/actuation HFA aerosol inhaler 1 puff inhalation DIRECTED PRN (Reason: Shortness Of Breath) Rx Instructions: every 6 hrs aripiprazole 5 mg tablet 5 mg PO BEDTIME Discharge Orders: Discharge Order (Routine); Ordered 02/25/24 Ordered By: Romero Chan Discharge Diet: Advance as tolerated Discharge Activity: Limit activity as instructed Patient Instructions: Acute Wound Care (DC), Opioid Safety, Post Anesthesia Care Activity Restrictions/Additional Instructions: Thank you for [facility] for your care! The following is a list of instructions, from your provider, to follow upon your discharge to ensure you have the optimal recovery from your recent injury orsurgery. Follow-up care is a riley part of your treatment and safety. Be sure to make and go to all appointments, and call your doctor if you are having problems. If you do not already have a follow-up appointment made, call Dr. Chan office in the next 1-3 days to make follow up appointment for 1 weeks at [phone]. It is also a good idea to know your test results and keep a list of the medicines you take. Medications will be prescribed for you at your provider's discretion. These medications are to be used as instructed; if they are taken more often that prescribed they will not be refilled early and in most cases will not be refilled at all. > When a refill is needed,you should contact kaci bishop 2-3 business days before your prescription runs out. Medications will NOT be refilled by lining [facility] providers after hours! > Many pain medications contain Tylenol (Acetaminophen). Do not consume more than 4,000 mg of Tylenol per day in total with any combination ofmedications. > Pain medications can cause constipation. Please use an over the counter stool softener as directed, while taking pain medications. Consulty our local pharmacist with questions or recommendations on stool softeners. If constipation persists, contact our office or your primary care provider. > While under our care,you are not to receive pain medications or other controlled substances from any other provider unless our office is notified and approves. Any attempts to do so will result in refusal to prescribe any further pain medications and possible dismissal from our practice. ? Follow-up in clinic in 1 week to change the dressing. ? Showering is permitted, however we ask that you do not take a bath, sit in a whirlpool / Jacuzzi, or go swimming for 1 month. For only the first 2 days after surgery, lt wilt be necessary for you to cover your wound/dressing with plastic and tape to keep it dry. ? Walking is essential for the healing process after surgery. We would like you to slowly advance your walking. This should be done on relatively flat clear ground (inside or out) or can be done on a treadmill. Remember this goal does not have to happen all at once, slowly increase your distance and duration. This can be broken into more more than one walk per day as tolerated. Patients who walk as directed after surgery rarely require Physical Therapy. In the unlikely event this issue arises your provider will direct hospital staff to make the appropriate arrangements. ? No lifting over 5 pounds {a gallon of milk) or bending/twisting until further notice. Each of these activities places an unnecessary amount of stress onto the body and can impede the delicate healing process. > Instead of bending at the waist, keep your back straight and bend at the knees. > Instead of twisting your torso, keep your back straight and turn your entire body with your feet. ? You may sleep in any position which makes you comfortable. Many patients find comfort sleeping in a reclining chair. It is not abnormal to have difficulty sleeping for the first several weeks following your surgery. We recommend trying Benadry! or Tylenol PM as directed to help with your sleeping difficulties. Both medications are over the counter and available withoutprescription. ? NO SMOKING!!! Smoking dramatically increases the probability of developing postoperative wound infections. ? Common complaints after lumbar and/or thoracic spine surgery include, but are not limited to: numbness and/or tingling in the legs, pain around the incision and surrounding tissues, muscle spasms, or stiffness of the middle to low back. Contact our office if these symptoms persist or if an acute change occurs. ? No driving for the first 3-5days, and not while taking narcotics [] until seen at your follow-up appointment and cleared. There are no restrictions for riding on short trips, however if you take a longer trip, arrangements should be made to make regular stops to get out of the vehicle and stretch . ? Swelling is an unfortunate event that will take place with any surgery and is the primary source of your postoperative discomfort. While walking and regular approved activities helps control inflammation, there are additional steps you can take to minimizeswelling. > Place ice over the surgical site and surrounding tissue for twenty minutes, followed by applying a low/medium heat (heating pad) for an additional twenty minutes every 1-2 hours as needed for painrelief. > You may use of over the counter anti-inflammatory medications (Ibuprofen, Motrin, Aleve, Advil, etc) as directed on the package label. These types of medicines wm significantly reduce the amount of discomfort you experience after surgery from swelling. It should be noted that if you have and allergy to any of these medications, or a history of ulcers or kidney disease you should consult you primary care provider prior to starting these medications. Discharge Attestations Time Spent in Discharge Care*: less than 30 min Quality Metrics Clinical Quality Measures [ No reported AMI, CVA or VTE this stay] Coding Level of Care Code Acute Code for Chg Emy
[2024-02-25] MEDS: docusate sodium 100 mg Capsule PO (09:02)
[2024-02-25] MEDS: insulin glargine 100 units/1 mL 50 UNIT SUBCUT (09:02)
[2024-02-25] MEDS: metoprolol succinate ER (24 HR) 25 mg Tablet PO (09:02)
[2024-02-25] MEDS: duloxetine 30 mg Capsule PO (09:02)
--- NOTE | 2024-02-25 09:23 | PC.NURSE ---
dc pending first void after rodriges removal
--- NOTE | 2024-02-25 09:33 | PC.CHAP ---
Pastoral Care Encounter/Spiritual Assessment Type of Contact [] Declined division leader visit [] Patient/Family/Request visit [] Outpatient visit [] Follow-up visit [] Physician referral [] Code/Alert [] Routine visit [] Staff referral [] Actively dying [] Patient sleeping [] Family support [] [] Out of room [] Palliative care [] [x] Receiving care in room [] Pre-surgical visit [] Trauma [] Long length of stay [] ICU visit [] Other: Relational/Emotional Strength [] Patient feels connected with others/family/visitors/staff [] Distress [] Loneliness/isolation [] Abandonment Spirituality of Patient [] Person of [] Attends Gnosticist of their [] Believes in Prayer [] Reads Bible or Buddhism materials [] There are Spiritual issues to be addressed Logistic Specialist Interventions [] Prayer [] Active listening [] Non-anxious presence [] Spiritual/emotional support [] Crisis/trauma care [] Spiritual counseling [] Bereavement support [] Provided bereavement packet [] Provided Bible/devotional materials [] Provided toy/stuffed animal, coloring book to patient or family member [] Provided Communion [] Anointing/[place] [] Salvation [] Completed spiritual assessment [] Other: Impact on Illness or Injury [] Angry [] Fearful [] Anxious [] Often cries [] Exhaustion [] Unable to work [] Unable to attend hinduism [] Unable to walk/stand [] Unable to read [] Unable to drive [] Unable to eat/drink [] Unable to sleep [] Unable to be with family [] Patient intubated [] Other: Summary Time spent with patient
[2024-02-25 11:36] LABS: Glucose Point of Care 315 mg/dL (70-110)
--- NOTE | 2024-02-25 13:18 | PC.NURSE ---
pt refused humalog at breakfast and lunch, says she will take it when she gets home
== END 2024-02-25 14:00 | disposition home or self-care (01) | DRG 455 ==
LOC: MEDSURG 20:03
PROVIDERS: Admitting Provider Orthopaedic Surgery; Family Provider Anesthesiology; PCP Family Medicine; Visit Provider Orthopaedic Surgery
PROC: 0SG30AJ Fusion of Lumbosacral Joint with Interbody Fusion Device, Posterior Approach, Anterior Column, Open Approach (ICD-10-PCS; principal; 2024-02-24 09:25)
PROC: 0SG30AJ Fusion of Lumbosacral Joint with Interbody Fusion Device, Posterior Approach, Anterior Column, Open Approach (ICD-10-PCS; CPT 22612; 2024-02-24 09:25)
PROC: 0SG30AJ Fusion of Lumbosacral Joint with Interbody Fusion Device, Posterior Approach, Anterior Column, Open Approach (ICD-10-PCS; CPT 63005; 2024-02-24 09:25)
DX: M48.062 Spinal stenosis, lumbar region with neurogenic claudication (principal); M54.16 Radiculopathy, lumbar region; J45.909 Unspecified asthma, uncomplicated; E11.22 Type 2 diabetes mellitus with diabetic chronic kidney disease; I12.9 Hypertensive chronic kidney disease with stage 1 through stage 4 chronic kidney disease, or unspecified chronic kidney disease; N18.9 Chronic kidney disease, unspecified; E78.5 Hyperlipidemia, unspecified; G47.33 Obstructive sleep apnea (adult) (pediatric); E55.9 Vitamin D deficiency, unspecified; F32.9 Major depressive disorder, single episode, unspecified; F41.1 Generalized anxiety disorder; E66.01 Morbid (severe) obesity due to excess calories; D50.9 Iron deficiency anemia, unspecified; Z79.4 Long term (current) use of insulin; Z79.82 Long term (current) use of aspirin; Z91.199 Patient's noncompliance with other medical treatment and regimen due to unspecified reason; Z68.38 Body mass index [BMI] 38.0-38.9, adult
CPT/HCPCS: 36415; 36416; 51702; 72100; 76000; 82962; 86850; 86900; 94760; 96372; 97116; 97162; 97530; C1713; J0330; J1100; J1170; J1644; J1815; J1885; J2250; J2405; J2704; J3010; J3370; J3490; J7030; J7120

== ENCOUNTER → 2024-03-05 13:00 | Outpatient (BNVA) | payer MEDICAID, SELFPAY | PROVIDERS: Family Provider Anesthesiology; PCP Family Medicine; Visit Provider Orthopaedic Surgery | DX: M48.062 Spinal stenosis, lumbar region with neurogenic claudication (principal) | CPT/HCPCS: 99024 ==

== ENCOUNTER → 2024-04-02 15:03 | Outpatient (BNVA) | payer MEDICAID, SELFPAY | PROVIDERS: Family Provider Anesthesiology; PCP Family Medicine; Visit Provider Orthopaedic Surgery | DX: Z98.1 Arthrodesis status (principal) | CPT/HCPCS: 72100; 99024 ==

== ENCOUNTER → 2024-05-14 10:23 | Outpatient (BNVA) | payer MEDICAID, SELFPAY | PROVIDERS: Family Provider Anesthesiology; PCP Family Medicine; Visit Provider Orthopaedic Surgery | DX: Z98.1 Arthrodesis status (principal) | CPT/HCPCS: 72100; 99024 ==

== ENCOUNTER → 2024-05-26 11:09 | Outpatient (BNVA) | payer MEDICAID, SELFPAY | PROVIDERS: Family Provider Anesthesiology; PCP Family Medicine; Visit Provider Family Medicine | DX: E78.2 Mixed hyperlipidemia (principal); E11.22 Type 2 diabetes mellitus with diabetic chronic kidney disease; N18.4 Chronic kidney disease, stage 4 (severe); Z79.4 Long term (current) use of insulin | CPT/HCPCS: 80053; 80061; 83036 ==

== ENCOUNTER → 2024-08-06 10:18 | Outpatient (BNVA) | payer MEDICAID, SELFPAY | PROVIDERS: Family Provider Anesthesiology; PCP Family Medicine; Visit Provider Orthopaedic Surgery | DX: Z98.1 Arthrodesis status (principal) | CPT/HCPCS: 72100; 99213 ==

== ENCOUNTER → 2025-02-04 09:52 | Outpatient (BNVA) | payer MEDICAID, SELFPAY | PROVIDERS: Family Provider Anesthesiology; PCP Family Medicine; Visit Provider Orthopaedic Surgery | DX: Z98.1 Arthrodesis status (principal); M54.9 Dorsalgia, unspecified; G89.29 Other chronic pain | CPT/HCPCS: 72100; 99213 ==

== ENCOUNTER 2025-04-05 08:27 | Outpatient (CLI) | payer MEDICAID, SELFPAY ==
--- NOTE | 2025-04-05 08:34 | MR_ITS ---
WS: [id number] MRI THORACIC SPINE WITHOUT CONTRAST TECHNIQUE: Sagittal T1, T2 and STIR imaging. Axial T2 imaging. Noncontrast imaging obtained. CLINICAL INFORMATION: SPONDYLOSIS W/O MYELOPATHY OR RADICULOPATHY, TSPINE REGION FINDINGS: Some images degraded by motion. Mild thoracic curve. Mild thoracic kyphosis. Alignment is similar to previous. No acute compression. No high-grade central canal stenosis. 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 Prominent epidural fat in the upper and mid thoracic spine. Shallow disc protrusions at T2-3, T3-4, T4-5,, T5-6, and T6-7 with mild central canal stenosis Cord signal is normal. Moderate facet arthropathy lower thoracic spine. Normal caliber thoracic aorta. Small esophageal hiatal hernia. Adrenal glands are normal. MR/MR thoracic spin wo con* [id number] IMPRESSION: 1. Mild thoracic curve with mild thoracic kyphosis. 2. No acute compression. 3. Shallow disc protrusions at T2-3, T3-4, T4-5,, T5-6, and T6-7 with mild marlyn tral canal stenosis. 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 4. Moderate facet arthropathy lower thoracic spine. 5. Cord signal is normal. 6. Small esophageal hiatal hernia
== END 2025-04-05 08:28 | disposition home or self-care (01) ==
LOC: RAD 08:28
PROVIDERS: PCP Family Medicine; Visit Provider Nurse Practitioner Acute Care
DX: M47.814 Spondylosis without myelopathy or radiculopathy, thoracic region (principal); M43.8X4 Other specified deforming dorsopathies, thoracic region; M40.294 Other kyphosis, thoracic region; M51.24 Other intervertebral disc displacement, thoracic region; M48.04 Spinal stenosis, thoracic region; R93.7 Abnormal findings on diagnostic imaging of other parts of musculoskeletal system; M47.894 Other spondylosis, thoracic region; K44.9 Diaphragmatic hernia without obstruction or gangrene
CPT/HCPCS: 72146

== ENCOUNTER → 2025-05-13 10:29 | Outpatient (BNVA) | payer MEDICAID, SELFPAY | PROVIDERS: Family Provider Anesthesiology; PCP Family Medicine; Visit Provider Orthopaedic Surgery | DX: Z47.89 Encounter for other orthopedic aftercare (principal); Z98.1 Arthrodesis status | CPT/HCPCS: 99213 ==

== ENCOUNTER → 2025-07-01 08:26 | Outpatient (BNVA) | payer MEDICAID, SELFPAY | PROVIDERS: Family Provider Anesthesiology; PCP Family Medicine; Visit Provider Orthopaedic Surgery | DX: M48.062 Spinal stenosis, lumbar region with neurogenic claudication (principal); M51.17 Intervertebral disc disorders with radiculopathy, lumbosacral region; Z98.1 Arthrodesis status | CPT/HCPCS: 72100; 99213 ==

== ENCOUNTER → 2025-07-20 10:27 | Outpatient (BNVA) | payer MEDICAID, SELFPAY | PROVIDERS: Family Provider Anesthesiology; PCP Family Medicine; Visit Provider Orthopaedic Surgery | DX: M54.50 Low back pain, unspecified (principal) | CPT/HCPCS: 99213 ==